=== PATIENT | male | born 2000 | race Caucasian/White ===

== ENCOUNTER 2020-08-15 19:27 | Emergency (ER) | payer OTHER ==
[~2020-08-15 19:27] MED LIST: PEPCID20 MG PO; ZOFRAN ODT 4 MG4 MG SL
[2020-08-15 22:19] LABS: HEMOGLOBIN 15.3 gm/dl (14.0-17.5); RED BLOOD COUNT 4.72 M/UL (4.20-5.50); WHITE BLOOD COUNT 4.2 K/UL (4.5-11.0)
[2020-08-15 22:39] LABS: BUN/CREATININE RATIO 11 (0-10)
[2020-08-15] MEDS ORDERED: DELSYM30 MG/5 ML PO (23:57)
[2020-08-15] MEDS ORDERED: BENTYL 10MG CAP10 MG PO (23:57)
[2020-08-15] MEDS ORDERED: ZOFRAN4 MG PO (23:57)
== END 2020-08-16 | disposition home or self-care (01) ==
LOC: ER1 19:27
PROVIDERS: Physician Assistant Medical
DX: R11.2 Nausea with vomiting, unspecified (principal); R19.7 Diarrhea, unspecified; I10 Essential (primary) hypertension; J45.909 Unspecified asthma, uncomplicated
CPT/HCPCS: 71045; 80053; 81001; 82550; 82553; 83690; 83874; 84484; 85025; 93005; 96374; 99284; J2405; J7030; Q9967